=== PATIENT | female | born 1970 | race Caucasian/White ===

== ENCOUNTER → 2021-04-07 | Outpatient (CLI) | payer OTHER ==
--- NOTE | 2021-04-11 08:21 | MM ---
Reason for exam: clinical finding. Last mammogram was performed 10 months ago. History: Patient is postmenopausal. Family history of breast cancer in sister at age 56. Benign excisional biopsy of the left breast, 2017. Physical Findings: Nurse did not find any significant physical abnormalities on exam. MG 3D Diag Mammo W/Cad DANIELA Bilateral CC and MLO view(s) were taken. Prior study comparison: June 04, 2020, mammogram. March 04, 2015, mammogram. There are scattered fibroglandular densities. Previous mammotome biopsy in the left breast. There is chronic nodularity in the left breast. No significant new findings when compared with previous films. These results were verbally communicated with the patient and result sheet given to the patient on 04/07/21. ASSESSMENT: Incomplete: need additional imaging evaluation, BI-RAD 0 RECOMMENDATION: Ultrasound of the left breast. (for pain)
--- NOTE | 2021-04-11 08:24 | USB ---
Reason for exam: additional evaluation requested from abnormal screening. History: Patient is postmenopausal. Family history of breast cancer in sister at age 56. Benign excisional biopsy of the left breast, 2017. US Breast LT Technologist: Aruna Robertson Left complete breast ultrasound includes all four quadrants, the retroareolar region and axilla. Finding demonstrates a 0.7 x 0.4 x 0.4cm cystic cluster at 1 o'clock, a 1.6 x 1.1 x 0.9cm thick walled, hypoechoic lesion at 3 o'clock, likely debris filled cyst, vacuum biopsy at symptomatic site and a 0.9 x 0.6 x 0.4cm cystic cluster at 5 o'clock. These results were verbally communicated with the patient and result sheet given to the patient on 04/07/21. ASSESSMENT: Suspicious, BI-RAD 4 RECOMMENDATION: Ultrasound core biopsy of the left breast. (versus aspiration) Called Dr. Thacker's office with mammographic findings and has scheduled an appointment for the patient for 05/12/21 at 10:[address] Rivas. Biopsy scheduled for 05/13/21 at 9:30. PRELIMINARY REPORT CALLED AND FAXED TO DR. RIVAS ON 04/11/21.
== END | disposition home or self-care (01) ==
LOC: RADMAMWWP 07:06
PROVIDERS: ATTEND Family Medicine
DX: R92.8 Other abnormal and inconclusive findings on diagnostic imaging of breast (principal); N60.02 Solitary cyst of left breast; Z80.3 Family history of malignant neoplasm of breast; Z78.0 Asymptomatic menopausal state
CPT/HCPCS: 77062; 77066

== ENCOUNTER → 2021-05-12 | Outpatient (CLI) | payer OTHER ==
[2021-05-12 10:44] VITALS: BP 123/85; PULSE 93; RESP 18; TEMP 98.2
--- NOTE | 2021-05-12 11:12 | P.GSHP ---
History of Present Illness H&P Date: 05/12/21 Chief Complaint: Abnormal left breast ultrasound Heather is a 50 year old white female seen for Dr. Frank Corley regarding a radiographic abnormality in her left breast. She underwent a bilateral mammogram on . This revealed chronic nodularity in the left breast. Ultrasound of the left breast was then recommended. This was performed on the same date. This revealed a 0.7 x 0.4 cm cystic cluster at 1:00, 1.6 x 1.1 cm thick walled hypoechoic lesion at 3:00, likely debris-filled cyst, vacuum biopsy of symptomatic site and a 0.9 x 0.6 cm cystic cluster at 5:00. The recommendation was for ultrasound core biopsy of the left breast versus aspiration. The patient was complaining of left breast medial and upper 12:00 pain for approximately one year. She has had a biopsy in the past of the left breast with a cyst drained and the pain resolved. The pain is intermittent, and is worse with palpation. She is not complaining of any nipple discharge. She is not complaining of any trauma or infection in the breast. She states that a stereotactic core biopsy of the left breast approximately 2016. This was not cancer. This cyst was drained at the same time. Caffeine: 1 cup/day nicotine: none chocolate: occasional Family history: sister: breast cancer at 56; chemotherapy now in [place] Hormonal history: Menarche: 14 , breast fed: yes, age at first : 23 menopause: 41 BCP: 2 years many years ago hormones: none Surgical history: 2 Ovarian cyst removed Appendectomy Tonsillectomy Medical history: hedaches (MRI of head) memory problems stomach problems ( ? umbilical hernia) Social history: Nicotine: Negative Alcohol: Negative Drugs: Negative - Constitutional Constitutional: Denies chills, Denies fever - EENT Eyes: denies blurred vision, denies pain Ears: deny: decreased hearing, tinnitus Ears, nose, mouth and throat: Reports headache - Breasts Breasts: bilateral: as per HPI - Cardiovascular Cardiovascular: Denies chest pain, Denies shortness of breath - Respiratory Respiratory: Denies cough, Denies 7 - Gastrointestinal Comment: ? umbilical hernia Gastrointestinal: Reports as per HPI - Genitourinary (Female) Genitourinary: Denies dysuria, Denies hematuria - Menstruation Menstruation: Reports postmenopausal - Musculoskeletal Comment: back pain Musculoskeletal: Reports myalgias - Integumentary Integumentary: Denies pruritus, Denies rash - Neurological Neurological: Denies numbness, Denies weakness - Psychiatric Psychiatric: Reports anxiety, Denies depression - Endocrine Endocrine: Denies fatigue, Denies weight change - Hematologic/Lymphatic Comment: none - Allergic/Immunologic Allergic/Immunologic: Reports seasonal allergies Past Medical History Past Medical History: No Reported History History of Any Multi-Drug Resistant Organisms: None Reported Past Surgical History: Section Additional Past Surgical History / Comment(s): x2 ( singular and twins) Past Anesthesia/Blood Transfusion Reactions: Postoperative Nausea & Vomiting (PONV) Past Psychological History: Anxiety Smoking Status: Never smoker Past Alcohol Use History: None Reported Past Drug Use History: None Reported - Past Family History Mother Family Medical History: Dementia, Myocardial Infarction (ID) Father Family Medical History: Coronary Artery Disease (CAD), Myocardial Infarction (ID) Sister(s) Family Medical History: Cancer Additional Family Medical History / Comment(s): breast cancer Medications and Allergies Home Medications Medication Instructions Recorded Confirmed Type No Known Home Medications 05/03/21 05/12/21 History Allergies Allergy/AdvReac Type Severity Reaction Status Date / Time No Known Allergies Allergy Verified 05/12/21 10:38 Surgical - Exam Vital Signs Temp Pulse Resp BP Pulse Ox 98.2 F 93 18 123/85 97 05/12/21 10:38 05/12/21 10:38 05/12/21 10:38 05/12/21 10:38 05/12/21 10:38 BMI 36.8 - General no distress - Eyes normal ocular movement - Neck trachea midline - Respiratory normal respiratory effort, clear to auscultation - Cardiovascular Rhythm: regular Heart Sounds: normal: S1, S2 - Abdomen Abdomen: soft - Integumentary normal turgor - Neurologic no disoriented, no combative - Musculoskeletal normal gait - Psychiatric oriented to time, oriented to person, oriented to place, speech is normal, memory intact Breast Exam: BRA: 40DD inspection: bilateral grade 3 ptosis palpation: right Breasts: Multiple positional exam fibrocystic changes no dominant masses or nodules of concern Right axilla: No adenopathy of concern Left breast: Multiple additional exam fibrocystic changes no dominant masses or nodules of concern Left axilla: No adenopathy of concern Results Ultrasound personally reviewed Assessment and Plan Assessment: Impression: Fibrocystic breast changes Prior cyst aspiration Abnormal left breast ultrasound Mastodynia Plan: Left breast ultrasound-guided core biopsy/aspiration Patient will follow up after ultrasound-guided core biopsy/aspiration CC: DR. Thacker
== END ==
LOC: WWCWWP 09:57
PROVIDERS: ATTEND Surgery
DX: R92.8 Other abnormal and inconclusive findings on diagnostic imaging of breast (principal); N60.11 Diffuse cystic mastopathy of right breast; N60.12 Diffuse cystic mastopathy of left breast; F41.9 Anxiety disorder, unspecified

== ENCOUNTER → 2021-05-13 | Day surgery (SDC) | payer OTHER ==
[2021-05-13 09:47] VITALS: RESP 16; TEMP 98.6
[2021-05-13 10:52] VITALS: BP 132/84; PULSE 82
--- NOTE | 2021-05-13 11:11 | USB ---
EXAMINATION TYPE: US biopsy breast VAD LT, MG diagnostic mammo LT wo CAD DATE OF EXAM: 05/13/2021 CLINICAL HISTORY: R92.8 abnormal mammogram. TECHNIQUE: Ultrasound guided core biopsy of left 3:00 breast. COMPARISON: NONE FINDINGS: The procedure of ultrasound guided core biopsy was explained to the patient. Benefits, alt ernatives, and risks were discussed. An informed consent was then obtained. The patient was placed in supine positioning for imaging and for the procedure. The overlying skin w as prepped and draped in usual sterile fashion. Lidocaine buffered with bicarbonate was used as anes thetic into the skin and subcutaneous tissue up to area of concern in the left 3:00 breast. A priscila w as made with surgical scalpel. Under ultrasound guidance, a 12-gauge vacuum assisted biopsy gun device was used to obtain 4 core melonie ples. Following this, a biopsy clip was left in lesion. The patient tolerated the procedure well without any immediate complication. The patient was kept in the radiology department for short stay after the procedure and then discharged home in stable condi tion. Postprocedural mammogram demonstrates appropriate clip deployment. IMPRESSION: Successful, uncomplicated ultrasound guided core biopsy of area of concern in the left 3: 00 breast, full pathology results to follow.
== END | disposition home or self-care (01) ==
LOC: RADUSWWP 09:15
PROVIDERS: ATTEND Surgery
DX: N60.12 Diffuse cystic mastopathy of left breast (principal); R92.0 Mammographic microcalcification found on diagnostic imaging of breast
CPT/HCPCS: 77065; 19083; A4648; J2001; 88305

== ENCOUNTER → 2021-05-16 | Outpatient (CLI) | payer OTHER ==
--- NOTE | 2021-05-16 11:26 | MR ---
EXAMINATION TYPE: MR brain wo con DATE OF EXAM: 05/16/2021 COMPARISON: NONE HISTORY: R41.3 memory problem, Headaches, Memory Loss TECHNIQUE: T1-weighted sagittal, T2, FLAIR, and diffusion axial, and T2 coronal coronal views of the brain are submitted. FINDINGS: There is no evidence of acute ischemia. Cerebellar tonsils are low-lying in position approximately 1 to 2 mm below the foramen magnum. There is a partially empty sella turcica. Changes of chronic sinusitis. Orbits are symmetric. Ventricular system is midline without displacemen t. No sizable areas of abnormal signal are seen on FLAIR imaging within the white matter. IMPRESSION: 1. Low-lying cerebellar tonsils approximately 1 to 2 mm below the foramen magnum correlate for Chiari malformation. No tonsillar beaking. 2. Partially empty sella turcica which is a nonspecific finding can occasionally be associated with b enign increased intracranial pressure, correlate clinically. 3. Chronic sinusitis
== END | disposition home or self-care (01) ==
LOC: RADMRIMAIN 09:44
PROVIDERS: ATTEND Family Medicine
DX: J32.9 Chronic sinusitis, unspecified (principal); G93.2 Benign intracranial hypertension; G93.5 Compression of brain
CPT/HCPCS: 70551

== ENCOUNTER → 2021-05-18 | Outpatient (CLI) | payer OTHER ==
--- NOTE | 2021-05-18 17:10 | US ---
EXAMINATION TYPE: US pelvic complete DATE OF EXAM: 05/18/2021 COMPARISON: NONE CLINICAL HISTORY: R10.33 PERIUMBILICAL PAIN; R14.0. TECHNIQUE: Transabdominal (TA: Date of LMP: 9 years prior EXAM MEASUREMENTS: Uterus: 7.8 x 3.0 x 5.3 cm Endometrial Stripe: 0.3 cm Right Ovary: 2.8 x 1.6 x 1.7 cm Left Ovary: 1.5 x 1.1 x 1.1 cm 1. Uterus: Anteverted 2. Endometrium: wnl 3. Right Ovary: wnl 4. Left Ovary: wnl 5. Bilateral Adnexa: wnl 6. Posterior cul-de-sac: wnl Urinary bladder is sonolucent. The posterior wall is normal. IMPRESSION: 1. Normal pelvic ultrasound
--- NOTE | 2021-05-18 17:14 | US ---
EXAMINATION TYPE: US abdomen complete DATE OF EXAM: 05/18/2021 COMPARISON: NONE CLINICAL HISTORY: R10.33 PERIUMBILICAL PAIN; R14.0. EXAM MEASUREMENTS: Liver Length: 17.8 cm Gallbladder Wall: 0.1 cm CBD: 0.4 cm Spleen: 11.8 cm Right Kidney: 12.5 x 3.4 x 5.1 cm Left Kidney: 12.6 x 4.7 x 5.3 cm Pancreas: Tail obscured by overlying bowel gas Liver: attenuating, area of probable focal fatty sparing seen in left lobe measuring 4.6 x 2.0 x 3. 3cm, 2nd area adjacent to gallbladder Gallbladder: wnl Evidence for sonographic Maloney's sign: no CBD: wnl Spleen: wnl Right Kidney: measures large Left Kidney: measures large Upper IVC: wnl Abd Aorta: bifurcation obscured IMPRESSION: 1. Somewhat prominent kidneys. 2. Focal fatty sparing adjacent to the gallbladder fossa. 3. Hepatomegaly
== END | disposition home or self-care (01) ==
LOC: RADUSWWP 07:09
PROVIDERS: ATTEND Family Medicine
DX: R16.0 Hepatomegaly, not elsewhere classified (principal); K82.8 Other specified diseases of gallbladder
CPT/HCPCS: 76700; 76856

== ENCOUNTER → 2021-05-20 | Outpatient (CLI) | payer OTHER ==
[2021-05-20 14:50] VITALS: BP 128/84; PULSE 71; RESP 17; TEMP 98.1
--- NOTE | 2021-05-20 15:09 | P.PN ---
Progress Note - Text Progress Note Date: 05/20/21 Heather is a 50-year-old white female status post ultrasound-guided core biopsy of the left breast on . Pathology was benign and concordant. It was fibrocystic change and fibrotic and inflamed cyst and fat necrosis. The patient tolerated the procedure without difficulty. The films have been personally reviewed with Dr. Perez from radiology. Examination: Lungs: Clear Heart: Regular rate and rhythm Biopsy site clean and dry Impression: Concordant core biopsy left breast fibrocystic changes and fat necrosis Plan: Repeat left breast mammogram in 6 months with position exam at that time CC: Dr. Jasen Thacker
== END ==
LOC: WWCWWP 14:35
PROVIDERS: ATTEND Surgery
DX: N60.12 Diffuse cystic mastopathy of left breast (principal); N64.1 Fat necrosis of breast

== ENCOUNTER 2021-08-02 05:56 | Day surgery (SDC) | payer OTHER ==
[2021-08-01 11:08] VITALS: BMI 37.2
[2021-08-02] MEDS ORDERED: LACTATED RINGERS 1,000 ML IV SCH (06:01)
[2021-08-02 06:15] VITALS: TEMP 97.5
[2021-08-02] MEDS ORDERED: PROPOFOL 10 MG/ML 20 ML VIAL IV ONE (07:05)
--- NOTE | 2021-08-02 07:25 | P.PCN ---
Date of Procedure: 08/02/21 Procedure(s) Performed: Brief history: Patient is a pleasant 50-year-old white female scheduled for an elective upper endoscopy as well as colonoscopy as a part of evaluation of epigastric pain, abdominal bloating and screening for colon cancer Procedure performed: Esophagogastroduodenoscopy biopsy Colonoscopy Preoperative diagnosis: Epigastric pain/abdominal bloating Screening for colon cancer Anesthesia: MAC Procedure: After informed consent was obtained from the patient was brought into the endo scopy unit and IV sedation was administered by anesthesia under continuous monitoring. Initially upper endoscopy was done. The Olympus GF 160 video endoscope was inserted inserted into the mouth and esophagus intubated without any difficulty and was gradually advanced into the stomach and duodenum and carefully examined. The bulb and second part of the duodenum appeared normal. The scope was then withdrawn into the stomach adequately insufflated with air and upon careful examination the antrum patchy areas of erythema and biopsies were done from this area. The body, cardia and fundus appeared normal. The scope was then withdrawn into the esophagus. The GE junction was located at 40 cm to the incisors. It appeared regular with with superficial erosions consistent with LA grade B reflux esophagitis.st of the esophagus appeared normal. Patient tolerated the procedure well. At this time the patient continued to remain sedation. Initial digital rectal examination was normal. Olympus CF 160 video colonoscope was then inserted into the rectum and gradually advanced to the cecum without any difficulty. Careful examination was performed as the scope was gradually being withdrawn. The prep was excellent. The cecum, ascending colon, transverse colon, descending colon, sigmoid colon and rectum appeared normal. Retroflexion was performed in the rectum and small internal hemorrhoids were noted. Patient tolerated the procedure well. Impression: 1. Upper endoscopy revealed mild antral gastritis and LA grade B reflux esophagitis 2. Colonoscopy was within normal limits with no evidence of colorectal neoplasia. Small internal hemorrhoids Recommendations: Findings of this examination were discussed with the patient as well as as her family. She was advised to follow with the biopsy results. Recommend using [id number] Pepcid as needed for the abdominal pain. She can have a repeat screening colonoscopy in 10 years from
[2021-08-02 07:36] VITALS: RESP 16
[2021-08-02 07:48] VITALS: BP 141/87; PULSE 70
== END 2021-08-02 08:36 | disposition home or self-care (01) ==
LOC: ORWHC2ENDO 05:56
PROVIDERS: ATTEND Internal Medicine Gastroenterology
DX: K29.50 Unspecified chronic gastritis without bleeding (principal); K21.00 Gastro-esophageal reflux disease with esophagitis, without bleeding; K64.8 Other hemorrhoids
CPT/HCPCS: 43239; 88305; J2704; G0121

== ENCOUNTER → 2021-11-23 | Outpatient (CLI) | payer OTHER ==
--- NOTE | 2021-11-23 08:56 | MM ---
Reason for Exam: Follow-up at short interval from prior study. Last screening mammogram was performed 7 month(s) ago. Patient History: Menarche at age 15. First Full-Term at age 23. Postmenopausal. Patient has history of breast feeding. 2017, Benign Excisional Biopsy on the left side. 05/13/2021, Benign Core Biopsy on the left side. Sister had breast cancer, age 56. Risk Values: Shaina 5 year model risk: 2.6%. NCI Lifetime model risk: 21.4%. Prior Study Comparison: 06/04/2020 Screening Mammogram, Unknown. 04/07/2021 Bilateral Diagnostic Mammogram, [facility]. 05/13/2021 Left Diagnostic Mammogram, [facility]. Tissue Density: Left: The breast tissue is heterogeneously dense. This may lower the sensitivity of mammography. Findings: Analyzed By CAD. No new masses or suspicious calcifications present. Overall Assessment: Benign, BI-RAD 2 Management: Screening Mammogram of both breasts in 6 months. A clinical breast exam by your physician is recommended on an annual basis and results should be correlated with mammographic findings. This exam should not preclude additional follow-up of suspicious palpable abnormalities. Results were given to the patient verbally at the time of exam. Electronically signed and approved by: Shawn Perez M.D. Radiologis
== END | disposition home or self-care (01) ==
LOC: RADMAMWWP 08:23
PROVIDERS: ATTEND Surgery
DX: R92.8 Other abnormal and inconclusive findings on diagnostic imaging of breast (principal)
CPT/HCPCS: 77065

== ENCOUNTER → 2021-12-15 | Outpatient (CLI) | payer OTHER ==
[2021-12-15 14:51] VITALS: BP 142/82; PULSE 70; RESP 17; TEMP 98.1
--- NOTE | 2021-12-15 14:59 | P.PN ---
Subjective Progress Note Date: 12/15/21 Principal diagnosis: Fibrocystic breast changes Heather is a 51 year old white female seen for Dr. Frank Corley regarding a radiographic abnormality in her left breast. She underwent a bilateral mammogram on . This revealed chronic nodularity in the left breast. Ultrasound of the left breast was then recommended. This was performed on the same date. This revealed a 0.7 x 0.4 cm cystic cluster at 1:00, 1.6 x 1.1 cm thick walled hypoechoic lesion at 3:00, likely debris-filled cyst, vacuum biopsy of symptomatic site and a 0.9 x 0.6 cm cystic cluster at 5:00. The recommendation was for ultrasound core biopsy of the left breast versus aspiration. She underwent a left breast core biopsy on 05-13-21 which was benign. She had a left breast mammogram on 11-23-21 which was BIRAD 2. Not completely Masses or nodules in either breast. Shaina Risk 2.6% 5 year lifetime: 21.4% Will discuss chemoprevention the patient has declined. Caffeine: 1 cup/day nicotine: none chocolate: occasional Family history: sister: breast cancer at 56; chemotherapy now in [place] Hormonal history: Menarche: 14 , breast fed: yes, age at first : 23 menopause: 41 BCP: 2 years many years ago hormones: none Surgical history: 2 Ovarian cyst removed Appendectomy Tonsillectomy Medical history: hedaches (MRI of head) memory problems stomach problems ( ? umbilical hernia) Social history: Nicotine: Negative Alcohol: Negative Drugs: Negative - Constitutional Constitutional: Denies chills, Denies fever - EENT Eyes: denies blurred vision, denies pain Ears: deny: decreased hearing, tinnitus Ears, nose, mouth and throat: Reports headache - Breasts Breasts: bilateral: as per HPI - Cardiovascular Cardiovascular: Denies chest pain, Denies shortness of breath - Respiratory Respiratory: Denies cough - Gastrointestinal Comment: ? umbilical hernia Gastrointestinal: Reports as per HPI - Genitourinary (Female) Genitourinary: Denies dysuria, Denies hematuria - Menstruation Menstruation: Reports postmenopausal - Musculoskeletal Comment: back pain Musculoskeletal: Reports myalgias - Integumentary Integumentary: Denies pruritus, Denies rash - Neurological Neurological: Denies numbness, Denies weakness - Psychiatric Psychiatric: Reports anxiety, Denies depression - Endocrine Endocrine: Denies fatigue, Denies weight change - Hematologic/Lymphatic Comment: none - Allergic/Immunologic Allergic/Immunologic: Reports seasonal allergies Objective - Exam BMI: 37.3 - Constitutional General appearance: Present: cooperative - EENT Eyes: Present: EOMI ENT: Present: hearing grossly normal - Neck Neck: Present: normal ROM - Respiratory Respiratory: bilateral: CTA - Cardiovascular Heart sounds: normal: S1, S2 - Integumentary Integumentary: Present: normal turgor - Musculoskeletal Musculoskeletal: Present: gait normal - Psychiatric Psychiatric: Present: A&O x's 3, appropriate affect, intact judgment & insight - Additional findings Additional findings: Breast examination: BRA: 40D Inspection: Bilateral grade 2/3 ptosis Palpation: Right breast: Multi-positional exam fibrocystic changes no dominant masses or nodules of concern Right axilla: No adenopathy of concern Left breast: Tender upper outer quadrant area but no discrete dominant masses or nodules of concern on multi-positional examination, fibrocystic changes noted Left axilla: No adenopathy of concern Assessment and Plan Assessment: Impression: Fibrocystic breast changes Shaina risk evaluation elevated at 2.6% 5 year risk, lifetime risk 21.4% patient will be followed closely, we will attempt to get 6 months alteranating MRI and mammogram Plan: MRI secondary to lifetime risk greater than 20% of breast cancer with physician exam Bilateral mammogram in March with physician exam Patient to follow up sooner any questions or concerns CC: DR. Jasen Funes
== END ==
LOC: WWCWWP 14:24
PROVIDERS: ATTEND Surgery
DX: N60.11 Diffuse cystic mastopathy of right breast (principal); N60.12 Diffuse cystic mastopathy of left breast

== ENCOUNTER → 2023-02-05 | Outpatient (CLI) | payer OTHER ==
--- NOTE | 2023-02-05 13:00 | CT ---
EXAMINATION TYPE: CT abdomen pelvis w con DATE OF EXAM: 02/05/2023 COMPARISON: None HISTORY: periumbilicul abdominal pain CT DLP: 1739 mGycm Automated exposure control for dose reduction was used. CONTRAST: CT scan of the abdomen pelvis is performed with IV Contrast, patient injected with 100 mL of Isovue 3 00. FINDINGS- LUNG BASES- No significant abnormality is appreciated. LIVER/GB- and diffuse hepatic steatosis with areas of focal fatty sparing near the gallbladder daniel a. No gallstones. PANCREAS- No gross abnormality is seen. SPLEEN- No gross abnormality is seen. ADRENALS- No gross abnormality is seen. KIDNEYS/BLADDER-no nephrolithiasis. There is a prominent right-sided renal pelvis. Hypodensity left k idney too small to characterize. Likely related to simple cyst. BOWEL- no evidence of obstruction. Small hiatal hernia. LYMPH NODES- No greater than 1cm abdominal or pelvic lymph nodes are appreciated. OSSEOUS STRUCTURES- multilevel hypertrophic and degenerative changes. OTHER- aorta of normal caliber. There is a fat-containing periumbilical hernia. No inflammatory ramirez ges. Slightly lobulated contour to the uterus. IMPRESSION- 1. Fat containing. Umbilical hernia but no evidence of inflammation. 2. Hepatic steatosis 3. Small hiatal hernia 4. Slightly lobulated contour to the uterus can be associated with fibroids correlated with ultrasoun d as clinically warranted. 5. Favor extrarenal pelvis over mild right hydronephrosis recommend correlation with ultrasound. No n ephrolithiasis.
== END | disposition home or self-care (01) ==
LOC: RADCTMAIN 09:42
PROVIDERS: ATTEND Family Medicine
DX: K42.9 Umbilical hernia without obstruction or gangrene (principal); K76.0 Fatty (change of) liver, not elsewhere classified; K44.9 Diaphragmatic hernia without obstruction or gangrene; R10.33 Periumbilical pain; R16.0 Hepatomegaly, not elsewhere classified
CPT/HCPCS: 74177; Q9967

== ENCOUNTER → 2023-05-22 | Outpatient (CLI) | payer OTHER ==
--- NOTE | 2023-05-23 22:11 | MM ---
Reason for Exam: Screening (asymptomatic). Last mammogram was performed 2 year(s) and 1 month(s) ago. Patient History: Menarche at age 15. First Full-Term at age 23. Postmenopausal. Patient has history of breast feeding. 2017, Benign Excisional Biopsy on the left side. 05/13/2021, Benign Core Biopsy on the left side. Sister had breast cancer, age 56. Risk Values: Shaina 5 year model risk: 2.8%. NCI Lifetime model risk: 21.1%. Prior Study Comparison: 04/07/2021 Bilateral Diagnostic Mammogram, [facility]. 05/13/2021 Left Diagnostic Mammogram, [facility]. 11/23/2021 Left MG diagnostic mammo LT w CAD, [facility]. Tissue Density: There are scattered fibroglandular densities. Findings: Analyzed By CAD. The pattern is symmetrical. Bilateral core markers are present. No significant interval changes are evident No suspicious groups of microcalcifications, spiculated or lobular masses, architectural distortion or other secondary signs of malignancy are mammographically apparent. Overall Assessment: Benign, BI-RAD 2 Management: Screening Mammogram of both breasts in 1 year. A negative mammogram report should not preclude additional follow up of suspicious palpable abnormalities. Patient should continue monthly self breast exam. A clinical breast exam by your physician is recommended on an annual basis and results should be correlated with mammographic findings. Electronically signed and approved by: Naveed Hurtado D.O. Radiologis
== END | disposition home or self-care (01) ==
LOC: RADMAMWWP 09:48
PROVIDERS: ATTEND Family Medicine
DX: R92.323 Mammographic fibroglandular density, bilateral breasts (principal); Z78.0 Asymptomatic menopausal state; Z80.3 Family history of malignant neoplasm of breast
CPT/HCPCS: 77063; 77067

== ENCOUNTER → 2024-06-12 | Outpatient (CLI) | payer OTHER ==
--- NOTE | 2024-06-12 10:30 | MM ---
Reason for Exam: Screening (asymptomatic). Last mammogram was performed 1 year(s) and 1 month(s) ago. Patient History: Menarche at age 15. First Full-Term at age 23. Postmenopausal. Patient has history of breast feeding. 2017, Benign Excisional Biopsy on the left side. 05/13/2021, Benign Core Biopsy on the left side. Sister had breast cancer, age 56. Risk Values: Shaina 5 year model risk: 2.9%. NCI Lifetime model risk: 20.7%. Prior Study Comparison: 05/13/2021 Left Diagnostic Mammogram, [facility]. 11/23/2021 Left MG diagnostic mammo LT w CAD, [facility]. 05/22/2023 Bilateral MG 3D screening mammo w/cad, [facility]. Tissue Density: The breasts are heterogeneously dense, which may obscure small masses. Findings: Analyzed By CAD. There are 2 mammotome biopsy clip in the left breast redemonstrated. Benign-appearing bilateral axillary lymph nodes are again seen. There is no suspicious new group of microcalcifications or new suspicious mass in either breast. Overall Assessment: Benign, BI-RAD 2 Management: Screening Mammogram of both breasts in 1 year. . Patient should continue monthly self-breast exams. A clinical breast exam by your physician is recommended on an annual basis. This exam should not preclude additional follow-up of suspicious palpable abnormalities. Note on Shaina scores and lifetime risk: 1. A Shaina score greater than 3% is considered moderate risk. If this is the case, consider specialist referral to assess eligibility for a risk reducing agent. 2. If overall lifetime risk for the development of breast cancer is 20% or higher, the patient may qualify for future screening with alternating mammogram and breast MRI. [facility], , 06/12/2024 10:27 AM. Electronically signed and approved by: Gary Mortensen M.D.
== END | disposition home or self-care (01) ==
LOC: RADMAMWWP 09:57
PROVIDERS: ATTEND Family Medicine
DX: Z12.31 Encounter for screening mammogram for malignant neoplasm of breast (principal); R92.333 Mammographic heterogeneous density, bilateral breasts; Z78.0 Asymptomatic menopausal state; Z80.3 Family history of malignant neoplasm of breast
CPT/HCPCS: 77063; 77067